=== PATIENT | male | born 1925 | race Caucasian/White ===

== ENCOUNTER 2016-11-11 02:47 | Emergency (ER) | payer MEDICARE, BC ==
[~2016-11-11] VITALS: Ht 177.8 cm; Wt 76.5 kg
[2016-11-11 02:50] VITALS: Ht 177.8 cm; Wt 76.5 kg
[2016-11-11] MEDS ORDERED: SOD CHLORIDE 0.9% 500 ML IV STA (03:29)
[2016-11-11] MEDS ORDERED: LORAZEPAM 2 MG INJ IV ONE (03:30)
[2016-11-11 03:49] LABS: ADD SCAN DIFF NO
[2016-11-11 03:59] LABS: ABNORMAL IP MESSAGE 1; HEMATOCRIT 43.1 % (42.0-52.0); HEMOGLOBIN 13.9 g/dl (14.0-18.0); MEAN CORPUSCULAR HEMOGLOBIN 31.3 pg (29.0-33.0); MEAN CORPUSCULAR HGB CONC 32.3 g/dl (32.0-37.0); MEAN CORPUSCULAR VOLUME 97.1 fl (82.0-101.0); MEAN PLATELET VOLUME 10.7 fl (7.4-10.4); PLATELET COUNT 133 10^3/UL (140-415); RED BLOOD COUNT 4.44 10^6/ul (4.70-6.10)
[2016-11-11 04:16] LABS: ALBUMIN 4.4 g/dl (3.3-4.9); ALBUMIN/GLOBULIN RATIO 1.18; BILIRUBIN,INDIRECT 0.9 mg/dl (0-1.1); BILIRUBIN,TOTAL 0.9 mg/dl (0.2-1.3); CALCIUM 9.4 mg/dl (8.4-10.2); CREATININE 1.86 mg/dl (0.61-1.24); POTASSIUM 5.5 mmol/L (3.5-5.1); TOTAL PROTEIN 8.1 g/dl (6.1-8.1)
[2016-11-11 04:27] LABS: TROPONIN-I 0.012 ng/ml (0.00-0.12)
[2016-11-11 04:28] LABS: INR 0.94; PROTIME 12.6 Sec (12.2-14.2)
--- NOTE | 2016-11-11 05:29 | RADRPT ---
PROCEDURE: CT BRAIN WITHOUT CONTRAST CLINICAL INDICATION: 89-year-old male with seizures. TECHNIQUE: The study was performed utilizing [facility] VCT 64-slice CT scanner. Direct axial sections were obtained from the foramen magnum to the vertex without the use of intravenous contrast material. Sagittal and coronal reformations were obtained. Sagittal and coronal reformations were obtained. One or more the following dose reduction techniques were utilized: automated exposure cont rol, adjustment of the mA and/or kV according to patient's size or use of iterative reconstruction t echnique. The images were viewed on a PACS workstation. CTD/vol = 43.7 mGy; Total Exam DLP = 810.3 mGy-cm. COMPARISON: None. FINDINGS: There is eozg-bd-spccbwgi degree of diffuse cortical and central atrophy with compensatory ventricul ar enlargement. There is no evidence for mass effect or midline shift. There are periventricular a reas of decreased density consistent with microangiopathic ischemic changes. There is no evidence f or acute intra or extra-axial blood. Calcifications are seen within the intracranial carotid arterie s bilaterally. The bony calvarium is intact. There is mild mucosal thickening within the ethmoid air cells. No air-fluid levels are noted. The mastoid air cells are without significant soft tissue. IMPRESSION: 1. Bjhm-vs-fxskvjny diffuse atrophy. 2. Microangiopathic ischemic changes. 3. Vascular calcifications. 4. Mild mucosal thickening ethmoid air cells. .Pool Pierre MD, Date Time Electronically viewed and signed by .Pool Pierre MD, on 11/11/2016 05:29 .Caroline/
--- NOTE | 2016-11-11 05:30 | RADRPT ---
PROCEDURE: CHEST - 1 VIEW CLINICAL INDICATION: 89-year-old male with chest pain. TECHNIQUE: A single frontal AP portable view of the chest was performed. The images were reviewed on a PACS workstation. COMPARISON: None. FINDINGS: There is a shallow inspiration accentuating the heart size. Accounting for this, the cardiomediasti nal silhouette is within normal limits. The thoracic aortic arch is mildly calcified. There is mil d bibasilar subsegmental atelectasis. There is no evidence for an infiltrate. There is no evidence for congestive heart failure. There is no evidence for pneumothorax. The osseous structures are int act. IMPRESSION: 1. Calcified thoracic aortic arch. 2. Shallow inspiration. 3. Mild bibasilar system atelectasis. .Pool Pierre MD, Date Time Electronically viewed and signed by .Pool Pierre MD, on 11/11/2016 05:30 .M/
[2016-11-11] MEDS ORDERED: SODI15OR8 PO (06:17)
[2016-11-11 06:24] LABS: LYMPHOCYTES # 2.2 10^3/ul (0.8-2.9); MONOCYTE # 0.2 10^3/ul (0.3-0.9); NEUTROPHIL # 2.4 10^3/ul (1.6-7.5)
--- NOTE | 2016-11-11 06:29 | ERD ---
ER Documentation Chief Complaint Date/Time DATE: 11/11/16 TIME: 06:22 Chief Complaint PT WOKE UP STATING HE DOESN'T WELL AND HE IS SHAKEY DENIES SOB AND PAIN HPI This 89-year-old male presents emergency room stay and he woke up feeling shaky and uneasy. He has no pain but states that he is feeling twitchy. He denies shortness of breath fever chills, dysuria, nausea. States that he has not had this feeling before. He has no headache or neurological symptoms. ROS All systems reviewed and are negative except as per history of present illness. Medications Home Meds Active Scripts Sodium Polystyrene Sulfonate* (Kayexalate*) 15 Gm/60 Ml Susp, 30 GM PO DAILY, # 2 ML Prov:MONIKA DIEHL DO 11/11/16 PMhx/Soc History of Surgery: Yes Anesthesia Reaction: No Hx Respiratory Disorders: No Hx Cardiac Disorders: Yes (HTN) Hx Psychiatric Problems: No Hx Miscellaneous Medical Probl: Yes (GOUT, SKIN CANCER) Hx Alcohol Use: No Hx Substance Use: No Hx Tobacco Use: No Smoking Status: Former smoker Physical Exam Vitals Vital Signs Date Time Temp Pulse Resp B/P Pulse Ox O2 Delivery O2 Flow Rate FiO2 11/11/16 06:00 71 16 118/82 97 Room Air 11/11/16 03:38 Nasal Cannula 11/11/16 02:50 98.5 71 20 121/57 95 Physical Exam Const: [] Head: Atraumatic Eyes: Normal Conjunctiva ENT: Normal External Ears, Nose and Mouth. Neck: Full range of motion..~ No meningismus. Resp: Clear to auscultation bilaterally Cardio: Regular rate and rhythm, no murmurs Abd: Soft, non tender, non distended. Normal bowel sounds Skin: No petechiae or rashes Back: No midline or flank tenderness Ext: No cyanosis, or edema Neur: Awake and alert Psych: Normal Mood and Affect Result Diagram: 11/11/16 0327 11/11/16 0327 Results 24 hrs Laboratory Tests Test 11/11/16 02:56 11/11/16 03:27 Bedside Glucose 120mg/dL White Blood Count 5.010^3/ul Red Blood Count 4.4410^6/ul Hemoglobin 13.9g/dl Hematocrit 43.1% Mean Corpuscular Volume 97.1fl Mean Corpuscular Hemoglobin 31.3pg Mean Corpuscular Hemoglobin Concent 32.3g/dl Red Cell Distribution Width 13.0% Platelet Count 21091^3/UL Mean Platelet Volume 10.7fl Prothrombin Time 12.6Sec Prothrombin Time Ratio 1.0 INR International Normalized Ratio 0.94 Activated Partial Thromboplast Time 31.0Sec Sodium Level 140mmol/L Potassium Level 5.5mmol/L Chloride Level 107mmol/L Carbon Dioxide Level 25mmol/L Anion Gap 14 Blood Urea Nitrogen 48mg/dl Creatinine 1.86mg/dl Glucose Level 111mg/dl Calcium Level 9.4mg/dl Total Bilirubin 0.9mg/dl Direct Bilirubin 0.00mg/dl Indirect Bilirubin 0.9mg/dl Aspartate Amino Transf (AST/SGOT) 20IU/L Alanine Aminotransferase (ALT/SGPT) 20IU/L Alkaline Phosphatase 85IU/L Troponin I 0.012ng/ml Total Protein 8.1g/dl Albumin 4.4g/dl Globulin 3.70g/dl Albumin/Globulin Ratio 1.18 Current Medications Medications (Trade) Dose Ordered Sig/Jonathan Route PRN Reason Start Time Stop Time Status Last Admin Dose Admin Sodium Chloride (NS) 500 ml @ 500 mls/hr Q1H STAT IV 11/11/16 03:29 11/11/16 04:28 DC 11/11/16 04:01 Lorazepam (Ativan) 0.5 mg ONCE ONCE IV 11/11/16 03:30 11/11/16 03:37 DC 11/11/16 04:01 Procedures/MDM EKG interpretation: Normal sinus rhythm rate of 60, normal axis, no ST or T- wave changes concerning for acute ischemia. Elevation of T waves in V3 and V4. vehicle monitor technician interpretation: Normal sinus rhythm without arrhythmia CT brain interpretation: No acute process, I see no hemorrhage, no mass effect no midline shift, no skull fracture no abnormal masses Chest x-ray interpretation: See no acute process, no infiltrates, no pneumothorax, no pulmonary edema, no fractures Elderly male with feeling of shakiness after waking up. Does have some renal insufficiency with a mildly elevated potassium level. Was given 0.5 mg of Ativan after which the shaking stopped. He is feeling better in the emergency room. His urinalysis is still pending if there is positive infection in the oncoming physician is following the urinalysis and will prescribe an antibiotic. This point I'm going to prescribe him 2 doses of Kayexalate and return in 2 days to the ER or see his primary care doctor in 2 days for repeat potassium level. Return sooner if there are any acute changes. I've explained instructions to the patient and his . The seems to be the one else this patient care for himself. Departure Diagnosis: Primary Impression: Hyperkalemia Additional Impressions: Episode of shaking Renal insufficiency Condition: Stable Patient Instructions: Hyperkalemia, Renal Insufficiency Referrals: [facility] YOU HAVE RECEIVED A MEDICAL SCREENING EXAM AND THE RESULTS INDICATE THAT YOU DO NOT HAVE A CONDITION THAT REQUIRES URGENT TREATMENT IN THE EMERGENCY DEPARTMENT. FURTHER EVALUATION AND TREATMENT OF YOUR CONDITION CAN WAIT UNTIL YOU ARE SEEN IN YOUR DOCTORS OFFICE WITHIN THE NEXT 1-2 DAYS. IT IS YOUR RESPONSIBILITY TO MAKE AN APPOINTMENT FOR FOLOW-UP CARE. IF YOU HAVE A PRIMARY DOCTOR --you should call your primary doctor and schedule an appointment IF YOU DO NOT HAVE A PRIMARY DOCTOR YOU CAN CALL OUR PHYSICIAN REFERRAL HOTLINE AT IF YOU CAN NOT AFFORD TO SEE A PHYSICIAN YOU CAN CHOSE FROM THE FOLLOWING [facility] [address] [facility]. [facility] [address] [facility] [facility] [address] [facility] [place] [facility] [address] [facility]. [facility] [address]. [facility]. [address] Additional Instructions: Call your primary care doctor TOMORROW for an appointment during the next 1-2 days. Have a recheck of potassium/EKG. See the doctor sooner or return here if your condition worsens before your appointment time. MONIKA DIEHL DO Nov 11, 2016 06:29
[2016-11-11 06:45] LABS: ADD UMIC YES; URINE BILIRUBIN (Dip) NEGATIVE (NEGATIVE); URINE BLOOD (Dip) TRACE (NEGATIVE); URINE COLOR LT. YELLOW (YELLOW); URINE GLUCOSE (Dip) NEGATIVE (NEGATIVE); URINE KETONES (Dip) NEGATIVE (NEGATIVE); URINE LEUKOCYTE ESTERASE (Dip) NEGATIVE (NEGATIVE); URINE NITRITE (Dip) NEGATIVE (NEGATIVE); URINE TOTAL PROTEIN (Dip) NEGATIVE (NEGATIVE); URINE UROBILINOGEN (Dip) 0.2 E.U./dL (0.1-1.0)
[2016-11-11 07:30] VITALS: BP 149/79; PULSE 67; RESP 16; TEMP 97.9
== END 2016-11-11 08:06 | disposition home or self-care (01) ==
LOC: E/R 02:47
DX: E87.5 Hyperkalemia (principal); N28.9 Disorder of kidney and ureter, unspecified; I10 Essential (primary) hypertension; R07.9 Chest pain, unspecified; Z85.828 Personal history of other malignant neoplasm of skin; Z87.891 Personal history of nicotine dependence
CPT/HCPCS: 36415; 70450; 71010; 80053; 81001; 82962; 84484; 85025; 85610; 85730; 93005; 96374; 99285; J2060; J7040; P9612; 81003